=== PATIENT | female | born 1995 ===

== ENCOUNTER 2017-12-12 18:07 | Emergency (ER) | payer BC, OTHER, MEDICAID ==
[2017-12-12 18:32] VITALS: BP 117/75
--- NOTE | 2017-12-12 18:48 | UC ---
Nausea/Vomiting/Diarrhea HPI - HPI Summary HPI Summary: 22-year-old woman here with a chief complaint of diarrhea. 2 days ago she started with nausea vomiting diarrhea. The vomiting went away day and a half ago. The diarrhea is watery. No blood in the diarrhea. No fevers no chills. Some abdominal cramping it's brief but no persistent abdominal pain. The having 4-5 stools a day. Does not feel dehydrated or lightheaded. 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 She tried one dose of Imodium which did not seem to slow anything down. - History of Current Complaint Chief Complaint: UCGI Stated Complaint: DIARRHEA Time Seen by Provider: 12/12/17 18:36 Hx Last Menstrual Period: 841121 Pain Intensity: 0 - Allergies/Home Medications Allergies/Adverse Reactions: Allergies Allergy/AdvReac Type Severity Reaction Status Date / Time Penicillins Allergy Hives/Diff. Verified 12/12/17 18:33 Breathing/I tching Home Medications: Home Medications Ibuprofen TAB* [Advil TAB*] 200 mg PO Q6H PRN 12/12/17 [History Confirmed ] Loperamide CAP* [Imodium CAP*] 2 mg PO Q4H PRN 12/12/17 [History Confirmed 12/12] PMH/Surg Hx/FS Hx/Imm Hx Previously Healthy: Yes - Surgical History Surgical History: Yes Surgery Procedure, Year, and Place: wisdom teeth - Family History Known Family History: Negative: Diabetes - Social History Alcohol Use: Weekly Substance Use Type: None Smoking Status (MU): Never Smoked Tobacco Review of Systems Constitutional: Negative Skin: Negative Eyes: Negative ENT: Negative Respiratory: Negative Cardiovascular: Negative Gastrointestinal: Vomiting, Diarrhea Motor: Negative Neurovascular: Negative Musculoskeletal: Negative Neurological: Negative Psychological: Negative Is Patient Immunocompromised?: No All Other Systems Reviewed And Are Negative: Yes Physical Exam Triage Information Reviewed: Yes Appearance: Well-Appearing, No Pain Distress, Well-Nourished Vital Signs: Initial Vital Signs Temp 99.7 F 12/12/17 18:27 Pulse 85 12/12/17 18:27 Resp 16 12/12/17 18:27 BP 117/75 12/12/17 18:27 Pulse Ox 99 12/12/17 18:27 Vital Signs Reviewed: Yes Eye Exam: Normal Eyes: Positive: Conjunctiva Clear ENT: Positive: Other - ORAL MUCOSA MOIST Neck exam: Normal Neck: Positive: Supple Respiratory Exam: Normal Respiratory: Positive: Lungs clear, Normal breath sounds, No respiratory distress Cardiovascular Exam: Normal Cardiovascular: Positive: RRR Abdominal Exam: Normal Abdomen Description: Positive: Nontender, Soft Bowel Sounds: Positive: Present Musculoskeletal Exam: Normal Musculoskeletal: Positive: Strength Intact, ROM Intact Neurological Exam: Normal Neurological: Positive: Alert, Muscle Tone Normal Psychological Exam: Normal Psychological: Positive: Age Appropriate Behavior Skin Exam: Normal Naus/Vom/Diarrhea Course/Dx - Course Course Of Treatment: Patient went home with a stool sample kit . No fevers or chills no abdominal pain .The overall plan is to follow-up with [facility] as needed. Recheck sooner if worse. - Differential Dx/Diagnosis Provider Diagnoses: DIARRHEA. VOMITING Discharge - Sign-Out/Discharge Documenting (check all that apply): Patient Departure All imaging exams completed and their final reports reviewed: No Studies - Discharge Plan Condition: Stable Disposition: HOME Patient Education Materials: Acute Nausea and Vomiting (ED), Acute Diarrhea (ED ) Referrals: [facility] [Provider Group] Additional Instructions: FOLLOW UP WITH YOUR DOCTOR IF NOT COMPLETELY IMPROVED. GET RECHECKED FOR ANY WORSENING OF YOUR CONDITION OR QUESTIONS OR CONCERNS. - Billing Disposition and Condition Condition: STABLE Disposition: Home
== END 2017-12-12 19:18 | disposition home or self-care (01) ==
LOC: UCEAST 18:07
DX: R19.7 Diarrhea, unspecified (principal); R11.10 Vomiting, unspecified; Z88.0 Allergy status to penicillin
CPT/HCPCS: 99201; G0463